=== PATIENT | female | born 1985 | race Asian ===

== ENCOUNTER 2020-05-16 09:24 | Day surgery (SDC) | payer OTHER, SELFPAY ==
[~2020-05-16] VITALS: Ht 162.6 cm; Wt 72.6 kg
[2020-05-16] MEDS ORDERED: diphenhydrAMINE 50 MG/ML VIAL ONE (10:52)
[2020-05-16] MEDS ORDERED: fentaNYL citrate 0.05 MG/ML VIAL ONE (10:53)
[2020-05-16] MEDS ORDERED: MIDAZOLAM 5 MG/5 ML VIAL ONE (10:53)
[2020-05-16] MEDS ORDERED: fentaNYL citrate 0.05 MG/ML VIAL IVP ONE (12:05)
[2020-05-16] MEDS ORDERED: MIDAZOLAM 2 MG/2 ML VIAL IVP ONE (12:05)
== END 2020-05-16 12:20 | disposition home or self-care (01) ==
LOC: MDS 09:24 → MMU 09:24 → MDS 12:20
PROVIDERS: ATTEND Internal Medicine Gastroenterology
DX: R10.9 Unspecified abdominal pain (principal); K59.00 Constipation, unspecified; Z20.828 Contact with and (suspected) exposure to other viral communicable diseases
CPT/HCPCS: 43239; J2250; J3010; U0003; J1200